=== PATIENT | female | born 2000 ===

== ENCOUNTER 2024-06-27 19:50 | Emergency (ER) | payer SELFPAY ==
[~2024-06-27] VITALS: Ht 160 cm; Wt 63.4 kg
[2024-06-27 22:20] VITALS: BP 132/68; TEMP 98.4; O2SAT 100
== END 2024-06-28 00:26 | disposition left against medical advice (07) ==
LOC: M ED 19:50
DX: Z53.21 Procedure and treatment not carried out due to patient leaving prior to being seen by health care provider (principal)